=== PATIENT | male | born 1990 | race Two or more races ===

== ENCOUNTER 2023-05-10 13:33 | Emergency (ER) | payer SELFPAY ==
[2023-05-10] MEDS ORDERED: Lidocaine 1% 5 ML VIAL INJECT ONE (13:40)
== END 2023-05-10 14:37 | disposition home or self-care (01) ==
LOC: MW.ED 13:33
DX: S61.215A Laceration without foreign body of left ring finger without damage to nail, initial encounter (principal); W26.0XXA Contact with knife, initial encounter
CPT/HCPCS: 12002; 99282; 99283; J3490

== ENCOUNTER 2023-05-17 15:15 | Emergency (ER) | payer SELFPAY | END 2023-05-17 16:51 | disposition left against medical advice (07) | LOC: MW.ED 16:38 | DX: Z48.02 Encounter for removal of sutures (principal) | CPT/HCPCS: 99281 ==